=== PATIENT | female | born 1965 | race Asian ===

== ENCOUNTER 2018-06-16 08:11 | Emergency (ER) | payer BC ==
[~2018-06-16] VITALS: Ht 152.4 cm; Wt 56.8 kg
[2018-06-16 08:15] VITALS: TEMP 97.2
[2018-06-16 08:59] LABS: BASO % 0.5 % (0.0-2.0); EOS % 0.7 % (0-4.0); GRAN # 3.6 (1.4-6.5); HEMATOCRIT 42.7 % (37.0-47.0); LYMPH # 1.6 (1.2-3.4); LYMPH % 29.8 % (20.0-51.0); MEAN CELL VOLUME 88 fl (80.0-100.0); MEAN CORPUSCULAR HEMOGLOBIN 31 pg (27.0-31.0); MEAN CORPUSCULAR HGB CONC 35 g/dl (33.0-37.0); MONO # 0.2 (0.1-0.6); MONO % 3.8 % (1.7-9.3); PLATELET COUNT 270 K/mm3 (130-400); RED BLOOD COUNT 4.88 M/mm3 (4.10-5.30); REDCELL DISTRIBUTION WIDTH-CV 11.9 % (11.5-14.5)
[2018-06-16] MEDS ORDERED: PRINIVIL10 MG PO (09:02)
[2018-06-16] MEDS ORDERED: INDERAL80 MG PO (09:08)
[2018-06-16 09:12] LABS: ALANINE AMINOTRANSFERASE 23 U/L (9-52); ALBUMIN 4.4 gm/dL (3.5-5.0); ALKALINE PHOSPHATASE 92 U/L (50-136); ANION GAP 9 mmol/L (7-16); AST,SGOT 23 U/L (15-37); BILIRUBIN,TOTAL 0.6 mg/dL (0.0-1.0); BLOOD UREA NITROGEN 13 mg/dL (7-17); C-REACTIVE PROTEIN < 0.5 mg/dL (0.0-0.9); CALCIUM 9.9 mg/dL (8.4-10.2); CARBON DIOXIDE 25 mmol/L (22-30); CHLORIDE 104 mmol/L (98-107); GLUCOSE 165 mg/dL (74-106); POTASSIUM 3.9 mmol/L (3.4-5.0); SODIUM 138 mmol/L (137-145); TOTAL PROTEIN 7.6 gm/dL (6.4-8.2)
[2018-06-16] MEDS ORDERED: ANTIVERT 25MG25 MG PO (10:42)
[2018-06-16] MEDS ORDERED: ZOFRAN ODT4 MG PO (10:42)
[2018-06-16 10:55] VITALS: BP 136/85; PULSE 54
== END 2018-06-16 10:54 | disposition home or self-care (01) ==
LOC: COL.ER 08:11
PROVIDERS: Emergency Medicine
DX: R42 Dizziness and giddiness (principal); E11.9 Type 2 diabetes mellitus without complications; E78.5 Hyperlipidemia, unspecified; Z88.8 Allergy status to other drugs, medicaments and biological substances
CPT/HCPCS: J2405; J7030

== ENCOUNTER → 2020-09-05 | Outpatient (CLI) | payer BC ==
[~2020-09-05] MED LIST: ANTIVERT 25MG25 MG PO; CARDIZEM CD 12120 MG PO; ELIQUIS 5MG PO; INDERAL80 MG PO; PRINIVIL10 MG PO; ZOFRAN ODT4 MG PO
== END ==
LOC: MC.RAD 11:00
DX: Z12.31 Encounter for screening mammogram for malignant neoplasm of breast (principal); Z98.82 Breast implant status

== ENCOUNTER 2020-09-08 06:49 | Emergency (ER) | payer BC ==
[~2020-09-08] VITALS: Ht 152.4 cm; Wt 56.8 kg
[~2020-09-08 06:49] MED LIST changes: -CARDIZEM CD 12120 MG PO; -ELIQUIS 5MG PO
[2020-09-08 07:01] VITALS: TEMP 98.5
[2020-09-08 07:19] LABS: BASO # 0.1 (0.0-0.2); BASO % 0.6 % (0.0-2.0); EOS # 0.1 (0.0-0.7); EOS % 0.7 % (0-4.0); GRAN # 3.8 (1.4-6.5); HEMATOCRIT 40.7 % (37.0-47.0); HEMOGLOBIN 14.2 g/dl (12.5-16.0); LYMPH # 3.8 (1.2-3.4); LYMPH % 47.4 % (20.0-51.0); MEAN CELL VOLUME 88 fl (80.0-100.0); MEAN CORPUSCULAR HEMOGLOBIN 31 pg (27.0-31.0); MEAN CORPUSCULAR HGB CONC 35 g/dl (33.0-37.0); MEAN PLATELET VOLUME 8.9 fl (7.4-10.4); MONO # 0.3 (0.1-0.6); MONO % 3.9 % (1.7-9.3); PLATELET COUNT 255 K/mm3 (130-400); RED BLOOD COUNT 4.63 M/mm3 (4.10-5.30); REDCELL DISTRIBUTION WIDTH-CV 12.4 % (11.5-14.5)
[2020-09-08 07:34] LABS: ALANINE AMINOTRANSFERASE 26 U/L (4-34); ALBUMIN 4.6 gm/dL (3.5-5.0); ALKALINE PHOSPHATASE 68 U/L (50-136); ANION GAP 8 mmol/L (7-16); AST,SGOT 39 U/L (15-37); BILIRUBIN,TOTAL 0.6 mg/dL (0.0-1.0); BLOOD UREA NITROGEN 11 mg/dL (7-17); CALCIUM 9.5 mg/dL (8.4-10.2); CARBON DIOXIDE 25 mmol/L (22-30); CHLORIDE 108 mmol/L (98-107); CREATININE, serum 0.48 (0.52-1.25); GLUCOSE 192 mg/dL (74-106); LIPASE 104 U/L (23-300); POTASSIUM 3.8 mmol/L (3.4-5.0); SODIUM 141 mmol/L (137-145); TOTAL PROTEIN 8.1 gm/dL (6.4-8.2)
[2020-09-08 07:36] LABS: COLLECTION METHOD CLEAN CATCH
[2020-09-08 07:47] LABS: PH 8 (5-8); SQUAMOUS EPITHELIAL 0-2 /hpf; URINE APPEARANCE Clear; URINE BACTERIA None Seen /hpf; URINE BILIRUBIN Negative (NEGATIVE); URINE BLOOD 2+ (NEGATIVE); URINE COLOR Straw; URINE GLUCOSE 1+ (NEGATIVE); URINE KETONE Negative (NEGATIVE); URINE LEUKOCYTE ESTERASE Trace (NEGATIVE); URINE NITRATE Negative (NEGATIVE); URINE PROTEIN(semi-quant) Negative (NEGATIVE); URINE UROBILINOGEN Negative (NEGATIVE)
[2020-09-08 08:01] LABS: TROPONIN-I < 0.012 ng/mL (0.000-0.035)
[2020-09-08] MEDS ORDERED: ELIQUIS 5MG PO (12:09)
[2020-09-08] MEDS ORDERED: CARDIZEM CD 12120 MG PO (12:11)
[2020-09-08 12:32] VITALS: BP 129/94; PULSE 82
== END 2020-09-08 12:36 | disposition home or self-care (01) ==
LOC: COL.ER 06:49
PROVIDERS: Emergency Medicine
DX: I48.91 Unspecified atrial fibrillation (principal); E11.9 Type 2 diabetes mellitus without complications; R79.89 Other specified abnormal findings of blood chemistry; R79.1 Abnormal coagulation profile; Z90.710 Acquired absence of both cervix and uterus
CPT/HCPCS: Q9967